=== PATIENT | female | born 1975 | race Caucasian/White ===

== ENCOUNTER → 2024-06-30 | Outpatient (CLI) | payer MEDICAID, SELFPAY ==
--- NOTE | 2024-06-30 08:46 | ECHOD_ITS ---
Reason For Study: Tachycardia Procedure This was a 2D Doppler, Color Flow transthoracic echocardiogram. Exam performed in department. Left Ventricle Normal LV size. Left ventricular systolic function is normal. The left ventricular ejection fraction is 65 %. No regional wall motion abnormalities noted. Right Ventricle Normal RV size. Normal systolic function. Atria Normal left atrium. Normal right atrium. Mitral Valve Normal mitral valve. Tricuspid Valve Normal tricuspid valve. Aortic Valve Trisinus/trileaflet aortic valve. Pulmonic Valve Normal pulmonic valve. Great Vessels Normal aortic root. The pulmonary artery is normal size. Inferior vena cava collapse with respiration. Pericardium/Pleural No pericardial effusion. MMode/2D Measurements & Calculations LVIDd: 3.6 cm IVSd: 0.96 cm Ao root diam: 3.1 cm LVIDs: 2.3 cm LVPWd: 1.0 cm RVDd: 3.3 cm FS: 36.3 % LAV(MOD-bp): 48.6 ml LA A4 area: 17.3 cm2 LA dimension(2D): 4.0 cm LAV(MOD-bp) Indexed: 21.7 ml/m2 LAV(MOD-sp2): 45.8 ml LAV(MOD-sp4): 45.4 ml TAPSE: 2.0 cm RA A4 area: 17.1 cm2 Time Measurements MV dec time: 0.20 sec Doppler Measurements & Calculations MV E max silvino: 68.3 cm/sec Lat Peak E' Silvino: 14.2 cm/sec Med Peak E' Silvino: 9.3 cm/sec MV A max silvino: 62.4 cm/sec E/E' lat: 4.8 E/E' med: 7.4 MV E/A: 1.1 MV V2 max: 75.4 cm/sec MV P1/2t max silvino: 75.4 cm/sec Ao V2 max: 105.2 cm/sec MV max P.3 mmHg MV P1/2t: 61.9 msec Ao max P.4 mmHg MV V2 mean: 38.7 cm/sec MV dec slope: 357.0 cm/sec2 Ao V2 mean: 76.4 cm/sec MV mean P.73 mmHg Ao mean P.6 mmHg MV V2 VTI: 18.9 cm MVA(P1/2t): 3.6 cm2 Ao V2 VTI: 23.8 cm AV (velocity ratio): 0.86 LV V1 max: 93.0 cm/sec PA V2 max: 80.6 cm/sec TR max silvino: 198.1 cm/sec LV V1 max P.5 mmHg TR max P.7 mmHg LV V1 mean P.4 mmHg LV V1 mean: 73.7 cm/sec LV V1 VTI: 20.4 cm ECHO/Echo Complete Interpretation Summary Normal LV size. Left ventricular systolic function is normal. The left ventricular ejection fraction is 65 %. Structurally normal valves. Ordering Physician: Aaron Mejia Referring Physician: Candelaria Aguillon Performed By: Reji Kat RCS
== END | disposition home or self-care (01) ==
PROVIDERS: PCP Nurse Practitioner Family; Referring Provider Internal Medicine Cardiovascular Disease; Visit Provider Internal Medicine Cardiovascular Disease
DX: R00.0 Tachycardia, unspecified (principal)
CPT/HCPCS: 93225; 93226; 93306